=== PATIENT | male | born 1995 | race American Indian/Alaskan Native ===

== ENCOUNTER 2020-04-10 06:00 | Emergency (ER) | payer SELFPAY ==
[2020-04-10 06:07] VITALS: BP 149/85
[2020-04-10 07:25] LABS: Bilirubin,Urine NEG (Negative); Blood,Urine NEG (Negative); Color,Urine Straw (Yellow); Mucus,Urine FEW /HPF; Protein,Urine <15 mg/dL mg/dL (Negative); Urobilinogen,Urine < 2.0 mg/dL (<2.0)
--- NOTE | 2020-04-10 08:22 | Emergency Department Report ---
ED General Adult HPI - General Chief complaint: Urogenital-Male Stated complaint: BURN WHEN URINE Time Seen by Provider: 04/10/20 07:22 Source: patient Mode of arrival: Ambulatory Limitations: No Limitations - History of Present Illness Initial comments: 24-year-old -[place] male patient presents with complaints of dysuria x3 days. He denies any penile discharge, penile swelling/testicular swelling/pain, abdominal pain, fever/chills/sweats, or hematuria. He states he has been drinking cranberry juice and lots of water and his symptoms have mildly improved. Patient states he recently had negative STD testing performed and denies any sexual intercourse since. He also states history of recurrent UTIs. He denies any history of diabetes or HIV peer - Related Data Previous Rx's Medication Instructions Recorded Last Taken Type Sulfamethoxazole/Trimethoprim 1 each PO BID 5 Days #10 tablet 04/10/20 Unknown Rx [Bactrim DS TAB] Allergies Allergy/AdvReac Type Severity Reaction Status Date / Time shellfish derived Allergy Anaphylaxis Verified 06/11/18 13:55 ED Review of Systems ROS: Stated complaint: BURN WHEN URINE Other details as noted in HPI Constitutional: denies: chills, fever, malaise Respiratory: denies: shortness of breath Cardiovascular: denies: chest pain Gastrointestinal: denies: abdominal pain, nausea, vomiting Genitourinary: dysuria, frequency. denies: hematuria, discharge, testicular pain, testicular mass Skin: denies: rash, lesions, change in color Hematological/Lymphatic: denies: swollen glands ED Past Medical Hx - Past Medical History Previous Medical History?: Yes Hx Asthma: Yes - Surgical History Past Surgical History?: No - Social History Smoking Status: Never Smoker Substance Use Type: None - Medications Home Medications: Home Medications Medication Instructions Recorded Confirmed Last Taken Type Sulfamethoxazole/Trimethoprim 1 each PO BID 5 Days #10 tablet 04/10/20 Unknown Rx [Bactrim DS TAB] ED Physical Exam - General Limitations: No Limitations General appearance: alert, in no apparent distress - Head Head exam: Present: atraumatic, normocephalic - Eye Eye exam: Present: normal appearance. Absent: scleral icterus - Respiratory Respiratory exam: Absent: respiratory distress - Cardiovascular Cardiovascular Exam: Present: regular rate - GI/Abdominal GI/Abdominal exam: Present: soft. Absent: tenderness - Extremities Exam Extremities exam: Present: normal inspection - Neurological Exam Neurological exam: Present: alert, oriented X3 - Psychiatric Psychiatric exam: Present: normal affect, normal mood - Skin Skin exam: Present: warm, dry, intact, normal color. Absent: rash, cyanosis ED Course Vital Signs 04/10/20 06:04 Temperature 98.3 F Pulse Rate 80 Respiratory 20 Rate Blood Pressure 149/85 O2 Sat by Pulse 94 Oximetry ED Medical Decision Making - Medical Decision Making 24-year-old -[place] male patient presents with complaints of dysuria x3 days. He denies any penile discharge, penile swelling/testicular swelling/pain, abdominal pain, fever/chills/sweats, or hematuria. He states he has been drinking cranberry juice and lots of water and his symptoms have mildly improved. Patient states he recently had negative STD testing performed and denies any sexual intercourse since. He also states history of recurrent UTIs. He denies any history of diabetes or HIV peer UA shows 5 WBCs and small amount of leukocyte Estrace. Will treat for UTI with Bactrim. Urine culture sent. Recommend follow-up with PCP in 3 to 5 days. Strict return precautions were discussed in detail with patient who verbalizes understanding peer Critical care attestation.: If time is entered above; I have spent that time in minutes in the direct care of this critically ill patient, excluding procedure time. ED Disposition Clinical Impression: Pyuria, Dysuria Disposition: DC-01 TO HOME OR SELFCARE Is pt being admited?: No Condition: Stable Instructions: Urinary Tract Infection, Adult, Dysuria Prescriptions: Sulfamethoxazole/Trimethoprim [Bactrim DS TAB] 1 each PO BID 5 Days #10 tablet Referrals: PRIMARY CARE, [Primary Care Provider] - 3-5 Days
== END 2020-04-10 08:28 | disposition home or self-care (01) ==
LOC: ED 06:00
DX: R30.0 Dysuria (principal); R82.81 Pyuria; J45.909 Unspecified asthma, uncomplicated; Z79.899 Other long term (current) drug therapy; Z91.013 Allergy to seafood
CPT/HCPCS: 81001; 87086; 99283

== ENCOUNTER 2020-06-04 11:16 | Emergency (ER) | payer SELFPAY ==
[2020-06-04 11:56] VITALS: BP 149/92
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
--- NOTE | 2020-06-04 12:18 | Cat Scan Report ---
CT MAXILLOFACIAL WITHOUT CONTRAST INDICATION / CLINICAL INFORMATION: Trauma with facial injury. Facial pain and left eye pain. TECHNIQUE: All CT scans at this location are performed using CT dose reduction for ALARA by means of automated e xposure control. COMPARISON: None available. FINDINGS: FACIAL BONES: Mildly depressed distal nasal bone fractures are demonstrated. No additional facial fra ctures are identified. CLAY HOISTER SPACES:Evaluation of the writer technical publications space structures reveal no abnormalities. SALIVARY GLANDS: Parotid and submandibular salivary glands have an unremarkable appearance. PARANASAL SINUSES: No significant abnormality. NASAL CAVITY: No abnormality ORBITS: Globes, optic nerves and extraocular muscles have an unremarkable appearance. TEMPORAL BONES:Visualized mastoid air cells and the middle ear cavities are normally pneumatized. VISUALIZED INTRACRANIAL STRUCTURES: Please refer to CT head report which is dictated separately. ADDITIONAL FINDINGS: None. IMPRESSION: 1. Mildly displaced distal nasal bone fractures. 2. No additional abnormality on CT facial bones. Signer Name: Felipe Philip MD Signed: 06/04/2020 12:14 PM Workstation Name: [id number]
--- NOTE | 2020-06-04 12:31 | Cat Scan Report ---
CT HEAD WITHOUT CONTRAST INDICATION / CLINICAL INFORMATION: Trauma with head injury and facial injury. Headache. Facial pain. Left eye pain. TECHNIQUE: All CT scans at this location are performed using CT dose reduction for ALARA by means of automated e xposure control. COMPARISON: Head CT 06/11/2018 FINDINGS: HEMORRHAGE: No evidence of intracranial hemorrhage or extra-axial fluid collection. EXTRA-AXIAL SPACES: There is enlargement of the cistern ofVellum interpositum which measures about 2. 6 x 1.7 x 1.6 cm in size. Arachnoid cyst in this location cannot be excluded. This is a stable findin g unchanged in size or configuration in comparison to previous study 06/11/2018. Cortical sulci, sylvi an fissures and basilar cisterns have an unremarkable appearance. VENTRICULAR SYSTEM: The third and lateral ventricles are of normal size and configuration. CEREBRAL PARENCHYMA: No areas of abnormal brain parenchymal attenuation are identified. There is no i ndication of recent infarction. MIDLINE SHIFT OR HERNIATION: There is no mass effect. CEREBELLUM / BRAINSTEM: Brainstem and cerebellum have an unremarkable appearance. MIDLINE STRUCTURES:No abnormalities of the pituitary gland or pineal region are identified. INTRACRANIAL VESSELS:No abnormalities are identified on this noncontrast head CT. ORBITS: visualized portions of the orbits have an unremarkable appearance. SOFT TISSUES of HEAD: No significant abnormality. CALVARIUM: Evaluation of bone windows reveals no abnormalities. PARANASAL SINUSES / MASTOID AIR CELLS: Visualized portions of the paranasal sinuses are free from inf lammatory mucosal disease. Mastoid air cells are normally pneumatized. ADDITIONAL FINDINGS: None. IMPRESSION: 1. No acute intracranial abnormality. 2. Enlargement of the cistern of the vellum interpositum as noted above. This is a stable finding and change since 06/11/2018. Signer Name: Felipe Philip MD Signed: 06/04/2020 12:26 PM Workstation Name: [id number]
== END 2020-06-04 13:13 | disposition home or self-care (01) ==
LOC: ED 11:16
DX: S02.2XXA Fracture of nasal bones, initial encounter for closed fracture (principal); S00.12XA Contusion of left eyelid and periocular area, initial encounter; S09.90XA Unspecified injury of head, initial encounter; H11.32 Conjunctival hemorrhage, left eye; J45.909 Unspecified asthma, uncomplicated; Z91.013 Allergy to seafood; Z79.899 Other long term (current) drug therapy; X58.XXXA Exposure to other specified factors, initial encounter; Y93.89 Activity, other specified; Y92.89 Other specified places as the place of occurrence of the external cause; Y99.8 Other external cause status
CPT/HCPCS: 70450; 70486